=== PATIENT | female | born 1995 | race American Indian/Alaskan Native ===

== ENCOUNTER 2018-09-02 05:55 | Emergency (ER) | payer SELFPAY ==
[2018-09-02] MEDS ORDERED: BOOSTRIX IM ONE (07:41)
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
[2018-09-02 08:11] VITALS: BP 112/74
== END 2018-09-02 08:08 | disposition home or self-care (01) ==
LOC: ED 05:55
DX: L03.113 Cellulitis of right upper limb (principal); Z91.030 Bee allergy status; Z91.018 Allergy to other foods
CPT/HCPCS: 90471; 90715; 99282